=== PATIENT | female | born 1990 ===

== ENCOUNTER 2024-09-08 11:33 | Inpatient (IN) | payer MEDICAID ==
[2024-09-08] MEDS: Labetalol 100 MG/20 ML MDV ONE (21:41)
[2024-09-08] MEDS ORDERED: Sodium Chloride 0.9% 10 ML Syringe FLUSH PRN ×3 (21:44→22:29)
[2024-09-08] MEDS ORDERED: Sodium Chloride 0.9% 2.5 ML Syringe FLUSH PRN ×3 (21:44→22:29)
[2024-09-08] MEDS ORDERED: Calcium Gluconate 10% 1 GM/10 ML SDV IV PRN ×2 (21:44→21:47)
[2024-09-08] MEDS ORDERED: Magnesium Sulf/Wat 4 GM/100 mL 4 GM in Premix Bag 1 BAG IV ONE (21:44)
[2024-09-08] MEDS ORDERED: Sodium Chloride 0.9% 20 ML SDV IV PRN ×3 (21:44→22:29)
[2024-09-08] MEDS ORDERED: Magnesium Sulf/Wat 20 GM/500mL 20 GM/500 ML BAG IV SCH (21:45)
[2024-09-08] MEDS: WATER IV ONE (22:00)
[2024-09-08] MEDS: Lactated Ringers 1,000 ML IV SCH (22:00)
[2024-09-08] MEDS: MAGNESIUM SULFATE IV ONE (22:00)
[2024-09-08] MEDS: Labetalol 100 MG/20 ML MDV IVPUSH PRN (22:16)
[2024-09-08] MEDS: Magnesium Sulf/Wat 2 GM/50 mL 2 GM in Premix Bag 1 BAG IV ONE (22:20)
[2024-09-08] MEDS ORDERED: Lidocaine 1% 50 ML MDV INJECT PRN (22:29)
[2024-09-08] MEDS ORDERED: Terbutaline 1 MG/ML SDV SUBCUT PRN (22:29)
[2024-09-08] MEDS ORDERED: Water For Irrigation,Sterile 1,000 ML Container IRR PRN (22:29)
[2024-09-08] MEDS ORDERED: Methylergonovine 0.2 MG/1 ML Amp IM PRN (22:29)
[2024-09-08] MEDS ORDERED: Misoprostol 25 MCG (1/4 of 100 MCG) Tab VAG PRN (22:29)
[2024-09-08] MEDS ORDERED: Butorphanol 2 MG/ML SDV IVPUSH PRN (22:29)
[2024-09-08] MEDS ORDERED: Carboprost Tromethamine 250 MCG/1 mL Vial IM PRN (22:29)
[2024-09-08] MEDS ORDERED: Oxytocin/0.9 % Sodium Chloride 30 UNIT/500 ML BAG IV SCH (22:30)
[2024-09-08] MEDS: ceFAZolin 2 GM in Sodium Chloride 0.9% 50 ML IV ONE (22:44)
[2024-09-08 22:48] LABS: HEMATOCRIT 35.9 % (37.0-47.0); HEMOGLOBIN 12.6 g/dL (12.0-16.0); MEAN CORPUSCULAR HEMOGLOBIN 31.1 pg (28.0-32.0); MEAN CORPUSCULAR HGB CONC 35.1 g/dL (32.0-36.0); MEAN CORPUSCULAR VOLUME 88.6 fL (83.0-99.0); MEAN PLATELET VOLUME 10.5 fL (9.4-12.3); PLATELET COUNT,PLT 266 K/uL (150-400); RED BLOOD CELL COUNT 4.05 M/uL (4.10-5.30); WHITE BLOOD CELL COUNT,WBC 10.91 K/uL (3.9-11.3)
[2024-09-08] MEDS: Magnesium Sulf/Wat 20 GM/500mL 20 GM/500 ML BAG IV SCH (22:50)
[2024-09-08 23:02] LABS: A/G RATIO 0.6 (0.9-1.6); ALBUMIN 2.6 g/dL (3.4-5.0); BILIRUBIN TOTAL 0.2 mg/dL (0.2-1.0); PROTEIN TOTAL,TP 6.8 g/dL (6.4-8.2)
[2024-09-08 23:32] LABS: CALCIUM 8.9 mg/dL (8.5-10.1); CARBON DIOXIDE,CO2 17.8 mmol/L (21.0-32.0); CREATININE 0.9 mg/dL (0.6-1.0); EST CRCL DRUG DOSING (CG) 72.17 mL/min; POTASSIUM,K 4.1 mmol/L (3.5-5.1)
[2024-09-09] MEDS: Acetaminophen 1,000 MG in Premix Bag 1 BAG IV ONE (02:33)
[2024-09-09] MEDS: ceFAZolin 1 GM in Sodium Chloride 0.9% 50 ML IV SCH (02:55)
[2024-09-09] MEDS: Misoprostol 25 MCG (1/4 of 100 MCG) Tab PO ONE (02:57)
[2024-09-09] MEDS: Misoprostol 25 MCG (1/4 of 100 MCG) Tab VAG PRN (02:57)
[2024-09-09] MEDS ORDERED: Phenylephrine HCl In 0.9% NaCl 1 MG/10 ML Syringe IVPUSH PRN (03:59)
[2024-09-09] MEDS ORDERED: ePHEDrine 50 MG/ML SDV IM PRN (03:59)
[2024-09-09] MEDS ORDERED: ePHEDrine 50 MG/ML SDV IVPUSH PRN (03:59)
[2024-09-09] MEDS ORDERED: dexmedeTOMIDine HCl 200 MCG/2 ML SDV EPIDUR SCH (04:00)
[2024-09-09] MEDS: Ropivacaine HCl/PF 400 MG in Premix Bag 1 BAG EPIDUR SCH (09:08)
[2024-09-09] MEDS ORDERED: Ampicillin 1 GM in Sodium Chloride 0.9% 50 ML IV SCH (11:00)
[2024-09-09] MEDS: ceFAZolin 1 GM Vial ONE (11:03)
[2024-09-09] MEDS: Bupivacaine 0.5% 10 ML SDV ONE (11:03)
[2024-09-09] MEDS: WAT ONE (11:03)
[2024-09-09] MEDS: Magnesium Sulf/Wat 20 GM/500mL 20 GM/500 ML BAG ONE (11:03)
[2024-09-09] MEDS: MAGNESIUM SULF ONE (11:03)
[2024-09-09] MEDS: Bupivacaine 0.5% 10 ML SDV INJECT ONE (11:04)
[2024-09-09] MEDS: Oxytocin/0.9 % Sodium Chloride 30 UNIT/500 ML BAG IV SCH (11:17)
[2024-09-09] MEDS: Tranexamic Acid in NACL,ISO-OS 1,000 MG in Premix Bag 1 BAG IV PRN (11:30)
[2024-09-09] MEDS ORDERED: Lanolin 100% Cream 7 GM Tube TOP PRN (11:58)
[2024-09-09 12:12] LABS: PH,UMBILICAL ARTERIAL 7.225 (7.18-7.38); PH,UMBILICAL VENOUS 7.271 (7.25-7.45)
[2024-09-09 12:36] LABS: BASOPHILS ABSOLUTE AUTO 0.03 K/uL (0.00-0.20); BASOPHILS PERCENT AUTO 0.3 % (0.0-1.0); EOSINOPHILS ABSOLUTE AUTO 0.03 K/uL (0.00-0.45); EOSINOPHILS PERCENT AUTO 0.3 % (0.0-6.0); HEMATOCRIT 40.8 % (37.0-47.0); HEMOGLOBIN 13.7 g/dL (12.0-16.0); IMMATURE GRAN ABSOLUTE AUTO 0.04 K/uL (0.00-0.05); IMMATURE GRAN PERCENT AUTO 0.4 % (0.0-0.4); LYMPHOCYTES ABSOLUTE AUTO 1.22 K/uL (1.00-4.80); LYMPHOCYTES PERCENT AUTO 12.1 % (24.0-44.0); MEAN CORPUSCULAR HEMOGLOBIN 30.4 pg (28.0-32.0); MEAN CORPUSCULAR HGB CONC 33.6 g/dL (32.0-36.0); MEAN CORPUSCULAR VOLUME 90.7 fL (83.0-99.0); MEAN PLATELET VOLUME 10.5 fL (9.4-12.3); MONOCYTES ABSOLUTE AUTO 0.78 K/uL (0.00-0.80); MONOCYTES PERCENT AUTO 7.8 % (0.0-8.0); NEUTROPHILS ABSOLUTE AUTO 7.95 K/uL (1.80-7.70); NEUTROPHILS PERCENT AUTO 79.1 % (41.0-71.0); PLATELET COUNT,PLT 275 K/uL (150-400); WHITE BLOOD CELL COUNT,WBC 10.05 K/uL (3.9-11.3)
[2024-09-09] MEDS: Misoprostol 200 MCG Tab PO PRN (12:50)
[2024-09-09] MEDS: Witch Hazel Medicated Pads 40/Jar TOP PRN (12:56)
[2024-09-09] MEDS: Benzocaine/Menthol 20%-0.5% Spray 78 GM Cannister TOP PRN (12:57)
[2024-09-09] MEDS: NIFEdipine 30 MG Tab.ER PO SCH (12:58)
[2024-09-09 13:00] LABS: A/G RATIO 0.5 (0.9-1.6); ALBUMIN 2.6 g/dL (3.4-5.0); BILIRUBIN TOTAL 0.2 mg/dL (0.2-1.0); CALCIUM 8.1 mg/dL (8.5-10.1); CARBON DIOXIDE,CO2 21.6 mmol/L (21.0-32.0); CREATININE 0.9 mg/dL (0.6-1.0); EST CRCL DRUG DOSING (CG) 72.17 mL/min; POTASSIUM,K 4.2 mmol/L (3.5-5.1); PROTEIN TOTAL,TP 7.5 g/dL (6.4-8.2)
[2024-09-09 13:33] LABS: AMPHETAMINES SCREEN, URINE NEGATIVE (CUTOFF=500); BARBITURATE SCREEN,URINE NEGATIVE (CUTOFF=200); BENZODIAZEPINES SCREEN,URINE NEGATIVE (CUTOFF=150); BUPRENORPHINE SCREEN,URINE NEGATIVE (CUTOFF=10); METHADONE SCREEN, URINE NEGATIVE (CUTOFF=200); METHAMPHETAMINES SCREEN, URINE NEGATIVE (CUTOFF=500); OXYCODONE SCREEN,URINE NEGATIVE (CUT0FF=100); PCP SCREEN,URINE NEGATIVE (CUTOFF=25); THC SCREEN,URINE 20 NG/ML NEGATIVE (CUTOFF=50)
[2024-09-09] MEDS: NIFEdipine 30 MG Tab.ER PO ONE (15:46)
[2024-09-09] MEDS: Ibuprofen 800 MG Tab PO PRN (15:46)
[2024-09-10 06:11] LABS: HEMATOCRIT 36.5 % (37.0-47.0); HEMOGLOBIN 12.2 g/dL (12.0-16.0); MEAN CORPUSCULAR HEMOGLOBIN 30.5 pg (28.0-32.0); MEAN CORPUSCULAR HGB CONC 33.4 g/dL (32.0-36.0); MEAN CORPUSCULAR VOLUME 91.3 fL (83.0-99.0); MEAN PLATELET VOLUME 10.4 fL (9.4-12.3); PLATELET COUNT,PLT 250 K/uL (150-400); WHITE BLOOD CELL COUNT,WBC 9.41 K/uL (3.9-11.3)
[2024-09-10 06:33] LABS: A/G RATIO 0.5 (0.9-1.6); ALBUMIN 2.2 g/dL (3.4-5.0); BILIRUBIN TOTAL 0.2 mg/dL (0.2-1.0); CALCIUM 8.1 mg/dL (8.5-10.1); CARBON DIOXIDE,CO2 22.3 mmol/L (21.0-32.0); CREATININE 0.7 mg/dL (0.6-1.0); EST CRCL DRUG DOSING (CG) 92.79 mL/min; POTASSIUM,K 4.2 mmol/L (3.5-5.1); PROTEIN TOTAL,TP 6.4 g/dL (6.4-8.2)
[2024-09-10] MEDS: Acetaminophen 500 MG Tab PO PRN (09:44)
[2024-09-10] MEDS: Docusate Sodium 100 MG Cap PO PRN (09:45)
[2024-09-10] MEDS: Simethicone 80 MG Tab.Chew PO PRN (09:45)
[2024-09-10] MEDS ORDERED: NIFEdipine 30 MG Tab.ER PO ONE (13:00)
[2024-09-10 14:14] LABS: C. TRACHOMATIS BY PCR NOT DETECTED; N. GONORRHOEAE BY PCR NOT DETECTED
[2024-09-12 11:07] LABS: HCV AB BY CIA INTERP Negative (Negative); HEPC AB BY CIA INDEX 0.09 IV
[2024-09-12 13:27] LABS: HEP B SURFACE AG Negative (Negative)
== END 2024-09-10 15:15 | disposition home or self-care (01) | DRG 807 ==
LOC: MW.OB 11:33 → OBSVTOIN 09-09 11:33 → MW.OB 09-09 21:10
PROVIDERS: ADMIT Obstetrics & Gynecology; ATTEND Obstetrics & Gynecology
PROC: 4A1HXCZ Monitoring of Products of Conception, Cardiac Rate, External Approach (ICD-10-PCS; principal; 2024-09-09)
PROC: 10E0XZZ Delivery of Products of Conception, External Approach (ICD-10-PCS; 2024-09-09)
PROC: 3E0R3BZ Introduction of Anesthetic Agent into Spinal Canal, Percutaneous Approach (ICD-10-PCS; 2024-09-09)
PROC: 3E0DXGC Introduction of Other Therapeutic Substance into Mouth and Pharynx, External Approach (ICD-10-PCS; 2024-09-09)
DX: O11.4 Pre-existing hypertension with pre-eclampsia, complicating childbirth (principal); Z37.0 Single live birth; O99.214 Obesity complicating childbirth; O99.824 Streptococcus B carrier state complicating childbirth; O69.1XX0 Labor and delivery complicated by cord around neck, with compression, not applicable or unspecified; O76 Abnormality in fetal heart rate and rhythm complicating labor and delivery; E66.01 Morbid (severe) obesity due to excess calories; O10.92 Unspecified pre-existing hypertension complicating childbirth; Z88.2 Allergy status to sulfonamides; J45.20 Mild intermittent asthma, uncomplicated; O99.52 Diseases of the respiratory system complicating childbirth; Z98.890 Other specified postprocedural states; Z3A.38 38 weeks gestation of pregnancy; Z64.1 Problems related to multiparity; Z87.59 Personal history of other complications of pregnancy, childbirth and the puerperium; Z87.891 Personal history of nicotine dependence
CPT/HCPCS: 36415; 51702; 59025; 59409; 80053; 80305; 82803; 83735; 85025; 85027; 86592; 86803; 86850; 86900; 86901; 87340; 87491; 87591; A9270-GY; J0131; J0665; J0690; J1920; J2590; J2795; J3475; J3490; J7120